=== PATIENT | male | born 1950 | race Caucasian/White ===

== ENCOUNTER 2024-05-26 12:38 | Emergency (ER) | payer BC ==
[~2024-05-26] VITALS: Ht 188 cm; Wt 83.9 kg
[2024-05-26] MEDS ORDERED: LIDOCAINE 5% (PATCH) 1 EA PATCH TP ONE (13:02)
[2024-05-26] MEDS ORDERED: ACETAMINOPHEN ES 500 MG TABLET ONE (13:02)
[2024-05-26] MEDS ORDERED: CYCLOBENZAPRINE 10 MG TABLET ONE (13:03)
[2024-05-26] MEDS: LIDOCAINE 5% (PATCH) 1 EA PATCH TP SCH (13:06)
[2024-05-26] MEDS: ACETAMINOPHEN 325 MG TABLET PO ONE (13:06)
[2024-05-26] MEDS: CYCLOBENZAPRINE 10 MG TABLET PO ONE (13:06)
[2024-05-26 14:43] VITALS: BP 146/75; TEMP 98.4; O2SAT 100
[2024-05-26] MEDS ORDERED: LIDOCAINE 1%-EPI 1:100,000 20 ML VIAL ONE (14:43)
[2024-05-26] MEDS ORDERED: CT SWABBABLE VALVE TRANS SET 1 EA INFUS.SET MC ONE (14:55)
[2024-05-26] MEDS ORDERED: IOHEXOL-300 100 ML VIAL IV ONE (14:55)
[2024-05-26] MEDS ORDERED: IV NS 0.9% 250 ML IV ONE (14:56)
[2024-05-26 15:46] LABS: BASOPHILS % (AUTO) 0.3 % (0.0-2.0); EOSINOPHILS % (AUTO) 0.2 % (0.0-6.0); HEMATOCRIT 46 % (39-51); HEMOGLOBIN 15.5 g/dL (13.5-17.5); LYMPHOCYTES # (AUTO) 1.1 K/uL (0.8-4.8); LYMPHOCYTES % (AUTO) 8.6 % (20.0-44.0); MEAN CORPUSCULAR HEMOGLOBIN 31 PG (26.0-33.0); MEAN CORPUSCULAR HGB CONC 34 g/dl (31.0-36.0); MEAN CORPUSCULAR VOLUME 92 fL (80-96); MONOCYTES # (AUTO) 0.6 K/uL (0.1-1.30); MONOCYTES % (AUTO) 5.3 % (2.0-12.0); NEUTROPHILS # (AUTO) 10.4 K/uL (1.8-8.9); NEUTROPHILS % (AUTO) 85.6 % (43.0-81.0); PLATELET COUNT (AUTO) 178 K/uL (150-450); RED BLOOD CELL COUNT(AUTO) 4.96 MIL/uL (4.5-6.0); RED CELL DISTRIBUTION WIDTH 14.1 % (11.5-15.0); WHITE BLOOD COUNT (AUTO) 12.2 K/uL (4.3-11.0)
[2024-05-26 15:47] LABS: CALCIUM, SERUM 8.3 mg/dL (8.5-10.1); CARBON DIOXIDE 27 mmol/L (21-32); CHLORIDE 105 mmol/L (98-107); CREATININE 0.9 mg/dL (0.6-1.3); GLUCOSE 127 mg/dL (74-106); POTASSIUM 4.3 mmol/L (3.5-5.1); SODIUM SERUM 137 mmol/L (136-145); UREA NITROGEN, BLOOD 18 mg/dL (7-18)
[2024-05-26 15:52] LABS: ALANINE AMINOTRANSFERASE 11 U/L (12-78); ALBUMIN 2.8 g/dL (3.4-5.0); ALKALINE PHOSPHATASE 106 U/L (46-116); ASPARTATE AMINOTRANSFERASE 21 U/L (15-37); BILIRUBIN,TOTAL 0.4 mg/dL (0.2-1.0); TOTAL PROTEIN, SERUM 5.8 g/dL (6.4-8.2)
[2024-05-26 16:01] LABS: INR 1.09 (0.91-1.10); PROTHROMBIN TIME 11.5 SECS (9.2-11.1)
[2024-05-26] MEDS ORDERED: MORPHINE SULFATE INJ 4 MG/ML DISP.SYRIN ONE (16:03)
[2024-05-26] MEDS: MORPHINE SULFATE INJ 2 MG/ML DISP.SYRIN IV ONE (16:06)
[2024-05-26] MEDS: CARBIDOPA/LEVA CR 25/100MG 1 TAB.SA PO STA (17:50)
== END 2024-05-26 18:00 | disposition short-term general hospital (02) ==
LOC: ER 12:44
DX: S22.42XA Multiple fractures of ribs, left side, initial encounter for closed fracture (principal); S42.192A Fracture of other part of scapula, left shoulder, initial encounter for closed fracture; G20.A1 Parkinson's disease without dyskinesia, without mention of fluctuations; J93.9 Pneumothorax, unspecified; V49.88XA Car occupant (driver) (passenger) injured in other specified transport accidents, initial encounter; Y93.89 Activity, other specified; Y92.89 Other specified places as the place of occurrence of the external cause; Y99.8 Other external cause status
CPT/HCPCS: 32551; 99291; 96374; 71045; 71100; 71260; 74177; 85025; 85610; 36415; 80053; 86850; 71250; J2270; J7050; J3490; Q9967